=== PATIENT | male | born 1970 | race African-American/Black ===

== ENCOUNTER 2016-11-26 13:13 | Emergency (ER) | payer SELFPAY ==
[~2016-11-26] VITALS: Ht 180.3 cm; Wt 79.0 kg
[~2016-11-26 13:13] MED LIST: DONNTAB12 PO; LOMO PO; PROC25R PR; PROM25SU8 PO; Z.0.NO CURRENT MEDS
[2016-11-26 13:15] VITALS: BP 106/62; PULSE 78; RESP 15; TEMP 98.2; O2SAT 99
[2016-11-26] MEDS ORDERED: AZITHROMYCIN PWD FOR SUSP 1 GM PACKET PO ONE (14:15)
[2016-11-26] MEDS ORDERED: LIDOCAINE HCL 1% 50 ML VIAL XX ONE (14:15)
--- NOTE | 2016-11-26 14:15 | PD ---
HPI Chief Complaint: Complaint Time Seen by Provider: 13:32 Travel History International Travel<30 days: No Contact w/Intl Traveler<30days: No Traveled to known affect area: No History of Present Illness HPI 45 show male presents today with complaints of dysuria and penile discharge. She states that he is sexually active and is not using protection. The patient denies any fevers, chills. He denies back pain. He has no other complaints time my examination. The patient has no previous history of STDs or UTIs. PFSH Past Medical History Diminished Hearing: No Social History Alcohol Use: Yes (once a week) Tobacco Use: Yes (1/2 PPD X 2 YEARS) Substance Use: Yes (CRACK , "NOT A LOT") Allergies-Medications (Allergen,Severity, Reaction): Coded Allergies: No Known Allergies (Verified , UNABLE TO CONFIRM, 09/12/07) Reported Meds & Prescriptions Reported Meds & Active Scripts Active Lomotil (Diphenoxylate HCl/Atropine) 1 Tab Tab 2.5 Mg PO PRN Phenergan (Promethazine HCl) 25 Mg Tab 12.5 Mg PO Q6HPRN FOR NAUSEA OR VOMITING (Belladonna Alkaloids/Phenobarbital) Tab 1-2 Tab PO QIDPRN DIARRHEA Phenergan (Promethazine HCl) 25 Mg Tab 25 Mg PO QIDPRN NAUSEA Compazine (Prochlorperazine) 25 Mg Supp 25 Mg [place] BIDPRN FOR NAUSEA Reported No Current Meds (Miscellaneous Medication) Misc Review of Systems Except as stated in HPI: all other systems reviewed are Neg General / Constitutional: No: Fever, Chills Gastrointestinal: No: Nausea, Vomiting, Abdominal Pain Genitourinary: Positive: Dysuria, Other (penile discharge), No: Frequency Musculoskeletal: No: Weakness, Pain (no flank pain) Physical Exam Narrative GENERAL: Well-nourished, well-developed patient. SKIN: Focused skin assessment warm/dry. HEAD: Normocephalic/atraumatic. EYES: No scleral icterus. No injection or drainage. NECK: Supple, trachea midline. GENITOURINARY: Circumcised. Testes descended bilaterally without evidence of rotation. No lesions or erythema. Positive urethral discharge. GASTROINTESTINAL: Abdomen soft, non-tender, nondistended. BACK: Nontender without obvious deformity. No CVA tenderness. Data Data Last Documented VS Vital Signs Date Time Temp Pulse Resp B/P Pulse Ox O2 Delivery O2 Flow Rate FiO2 11/26/16 13:15 98.2 78 15 106/62 99 Orders Urinalysis - C+S If Indicated (11/26/16 13:43) Gc And Chlamydia Pcr (11/26/16 13:43) Azithromycin Powd Pack (Zithromax Powd P (11/26/16 14:15) Ceftriaxone Inj (Rocephin Inj) (11/26/16 14:15) Lidocaine 1% Inj (50 Ml) (Xylocaine 1% I (11/26/16 14:15) MDM Medical Decision Making Medical Screen Exam Complete: Yes Emergency Medical Condition: Yes Differential Diagnosis Cystitis versus urethritis versus epididymitis Narrative Course 45 year old generally presents here with complaints of dysuria and penile discharge. The patient is unable to give us a urine specimen. He's been treated with Rocephin and Zithromax. He is instructed to have his partners checked for possible STDs as well. He was refusing straight catheter and was refusing penile swabs. Diagnosis Primary Impression: Urethral discharge in male Additional Instructions: Recommend having her partner evaluated and treated. Disposition: 01 DISCHARGE HOME Condition: Serious Perez Herr MD Nov 26, 2016 14:15
== END 2016-11-26 15:11 | disposition left against medical advice (07) ==
LOC: NEPD 13:13
DX: R36.9 Urethral discharge, unspecified (principal); R30.0 Dysuria
CPT/HCPCS: 99282